=== PATIENT | female | born 1955 | race Caucasian/White ===

== ENCOUNTER 2017-02-10 09:51 | Day surgery (SDC) | payer BC, OTHER ==
[~2017-02-10] VITALS: Ht 165.1 cm; Wt 107.5 kg
[~2017-02-10 09:51] MED LIST: ACETAMINOPHEN 325 MG TAB PO PRN; CYCLOPENTOLATE 2% OPHTH SOLN 2ML BTL OD ONE; LIDOCAINE 3.5 % 1ML OPHTH TOPICAL GEL OU ONE; OFLOXACIN 0.3 % (OCUFLOX) OPTH SOL 5ML OD ONE; PHENYLEPHRINE 2.5% OPHTH SOL 2ML OD ONE; PROPARACAINE 0.5% OPHTH SOL 15ML OD PRN; TROPICAMIDE 1% OPHTH SOLN 2ML OD ONE; VITA-182 PO; ZYRT10CA PO
[2017-02-10] MEDS ORDERED: BSS with VANC/TOB/EPI for EYE CASES IR ONE (11:00)
[2017-02-10] MEDS ORDERED: LIDOCAINE 1% SDV 5 ML VIAL As Ordered ONE ×2 (11:13→11:46)
[2017-02-10] MEDS ORDERED: MOXIFLOXACIN IN BSS 0.25MG/0.25ML INTRACAMERAL INJ (OR EYE ONLY)(J2280) As Ordered ONE ×2 (11:13→11:47)
[2017-02-10] MEDS ORDERED: TRIAMCINOLONE PRES FR 40 MG/ML 1ML(TRIESENCE)(OR EYE ONLY)(J3300 PER 1MG) As Ordered ONE ×2 (11:13→11:46)
[2017-02-10] MEDS ORDERED: HEALON DUET (HEALON 10MG/ML 0.55ML & HEALON ENDOCOAT 30MG/ML 0.85ML) As Ordered ONE ×2 (11:13→11:47)
[2017-02-10] MEDS ORDERED: MIDAZOLAM INJ 2 MG/2 ML VIAL (J2250) As Ordered ONE (11:19)
[2017-02-10] MEDS ORDERED: fentaNYL 100 MCG/2 ML INJECTION (J3010) As Ordered ONE (11:19)
[2017-02-10] MEDS ORDERED: TRIMETHOBENZAMIDE 300 MG CAP PO PRN (12:30)
[2017-02-10] MEDS ORDERED: AcetaZOLAMIDE 500 MG ER CAP PO ONE (12:30)
[2017-02-10] MEDS ORDERED: KETOROLAC 0.5% OPHTH SOLN OD ONE (12:30)
[2017-02-10 12:40] VITALS: BP 149/70
== END 2017-02-10 10:59 | disposition home or self-care (01) ==
LOC: M SDC 09:51
PROVIDERS: ATTEND Ophthalmology
DX: H26.9 Unspecified cataract (principal); K21.9 Gastro-esophageal reflux disease without esophagitis; G43.909 Migraine, unspecified, not intractable, without status migrainosus; R06.83 Snoring; Z91.048 Other nonmedicinal substance allergy status; Z90.710 Acquired absence of both cervix and uterus
CPT/HCPCS: 66984; J2250; J2280; J3010; J3300

== ENCOUNTER → 2017-06-04 | Outpatient (CLI) | payer OTHER, BC ==
[2017-06-04 15:11] LABS: ANION GAP 9 MEQ/L (8-16); BLOOD UREA NITROGEN 18 MG/DL (7-18); CALCIUM LEVEL 8.6 MG/DL (8.5-10.1); CARBON DIOXIDE LEVEL 25 MEQ/L (21-32); CHLORIDE LEVEL 108 MEQ/L (98-107); CREATININE FOR GFR 0.85 MG/DL (0.55-1.30); GLOMERULAR FILTRATION RATE > 60.0 (>51); GLUCOSE, FASTING 81 MG/DL (70-100); MAGNESIUM LEVEL 2.1 MG/DL (1.8-2.4); POTASSIUM SERUM 4.3 MEQ/L (3.5-5.1); SODIUM LEVEL 142 MEQ/L (136-145)
== END ==
LOC: M WUC 13:16
DX: Z01.818 Encounter for other preprocedural examination (principal)

== ENCOUNTER 2017-06-10 08:49 | Day surgery (SDC) | payer BC, OTHER ==
[2017-06-10] MEDS: POVIDONE-IODINE 5% OPHTH PREP SOL 30ML As Ordered (06:55)
[~2017-06-10 08:49] MED LIST changes: +ACETAMINOPHEN 325 MG TAB PO; -ACETAMINOPHEN 325 MG TAB PO PRN; -CYCLOPENTOLATE 2% OPHTH SOLN 2ML BTL OD ONE; -LIDOCAINE 3.5 % 1ML OPHTH TOPICAL GEL OU ONE; +MIDAZOLAM INJ 2 MG/2 ML VIAL (J2250) As Ordered; -OFLOXACIN 0.3 % (OCUFLOX) OPTH SOL 5ML OD ONE; -PHENYLEPHRINE 2.5% OPHTH SOL 2ML OD ONE; +PHENYLEPHRINE HCL 10 % OPHTH. SOL 5ML OD; +PROPARACAINE 0.5% OPHTH SOL 15ML OD; -PROPARACAINE 0.5% OPHTH SOL 15ML OD PRN; -TROPICAMIDE 1% OPHTH SOLN 2ML OD ONE; -VITA-182 PO; -ZYRT10CA PO; +fentaNYL 100 MCG/2 ML INJECTION (J3010) As Ordered
[2017-06-10] MEDS: LIDOCAINE 3.5 % 1ML OPHTH TOPICAL GEL OU (09:05)
[2017-06-10] MEDS: CYCLOPENTOLATE 2% OPHTH SOLN 2ML BTL OD (09:05)
[2017-06-10] MEDS: PHENYLEPHRINE 2.5% OPHTH SOL 2ML OD (09:10)
[2017-06-10] MEDS: TROPICAMIDE 1% OPHTH SOLN 2ML OD (09:10)
[2017-06-10] MEDS: OFLOXACIN 0.3 % (OCUFLOX) OPTH SOL 5ML OD (09:15)
[2017-06-10] MEDS: CEFUROXIME 1MG/0.1ML INTRACAMERAL INJ As Ordered (10:22)
[2017-06-10] MEDS: LIDOCAINE 1% SDV 5 ML VIAL As Ordered (10:22)
[2017-06-10] MEDS: HEALON DUET (HEALON 10MG/ML 0.55ML & HEALON ENDOCOAT 30MG/ML 0.85ML) As Ordered ×2 (10:22→10:23)
[2017-06-10] MEDS: BSS with VANC/TOB/EPI for EYE CASES IR (10:23)
[2017-06-10] MEDS: AcetaZOLAMIDE 500 MG ER CAP PO (10:54)
[2017-06-10] MEDS: KETOROLAC 0.5% OPHTH SOLN OD (10:54)
[2017-06-10] MEDS ORDERED: TRIMETHOBENZAMIDE 300 MG CAP PO (11:00)
== END 2017-06-10 11:10 | disposition home or self-care (01) ==
LOC: M SDC 08:49
DX: H52.31 Anisometropia (principal); H52.32 Aniseikonia; H40.9 Unspecified glaucoma; E66.9 Obesity, unspecified; K21.9 Gastro-esophageal reflux disease without esophagitis; J30.9 Allergic rhinitis, unspecified; Z87.891 Personal history of nicotine dependence; Z88.1 Allergy status to other antibiotic agents; Z88.8 Allergy status to other drugs, medicaments and biological substances; Z91.048 Other nonmedicinal substance allergy status
CPT/HCPCS: 66986

== ENCOUNTER → 2018-04-22 | Outpatient (CLI) | payer BC, OTHER ==
[~2018-04-22] MED LIST changes: -ACETAMINOPHEN 325 MG TAB PO; +CLAR10CA3 PO; +IBUP1TAB6 PO; -MIDAZOLAM INJ 2 MG/2 ML VIAL (J2250) As Ordered; -PHENYLEPHRINE HCL 10 % OPHTH. SOL 5ML OD; -PROPARACAINE 0.5% OPHTH SOL 15ML OD; +REST0.05 OU; +VITA-182 PO; +ZYRT10CA PO; -fentaNYL 100 MCG/2 ML INJECTION (J3010) As Ordered
[2018-04-22 17:23] LABS: ALBUMIN 3.9 GM/DL (3.2-5.2); ALT/SGPT 25 U/L (12-78); BILIRUBIN,TOTAL 0.5 MG/DL (0.2-1.0); BLOOD UREA NITROGEN 17 MG/DL (7-18); CALCIUM LEVEL 8.7 MG/DL (8.8-10.2); CARBON DIOXIDE LEVEL 27 MEQ/L (21-32); CHLORIDE LEVEL 105 MEQ/L (98-107); CHOLESTEROL LEVEL 196 MG/DL (<200); CHOLESTEROL RISK RATIO 3.563 (<5); CREATININE FOR GFR 0.87 MG/DL (0.55-1.30); FREE T4 1.51 NG/DL (0.76-1.46); GLOMERULAR FILTRATION RATE > 60.0 (>45); GLUCOSE, FASTING 83 MG/DL (70-100); HDL CHOLESTEROL 55 MG/DL (>40); LDL CHOLESTEROL 106 MG/DL (<100); NON-HDL-C 141 MG/DL; POTASSIUM SERUM 4.5 MEQ/L (3.5-5.1); SODIUM LEVEL 139 MEQ/L (136-145); TOTAL 25(OH) VITAMIN D 31.4 NG/ML (30.0-100.0); TOTAL PROTEIN 7.4 GM/DL (6.4-8.2); TRIGLYCERIDES LEVEL 177 MG/DL (<150)
== END ==
LOC: M WUC 15:19
PROVIDERS: ATTEND Nurse Practitioner Family
DX: E55.9 Vitamin D deficiency, unspecified (principal); E78.5 Hyperlipidemia, unspecified

== ENCOUNTER → 2021-05-30 | Outpatient (CLI) | payer BC, OTHER | LOC: M RAD 13:04 | PROVIDERS: ATTEND Nurse Practitioner Adult Health | DX: N18.9 Chronic kidney disease, unspecified (principal) ==

== ENCOUNTER → 2023-02-18 | Outpatient (CLI) | payer MEDICARE, BC, OTHER | LOC: M RAD 07:40 | PROVIDERS: ATTEND Nurse Practitioner Adult Health | DX: R10.11 Right upper quadrant pain (principal); K80.20 Calculus of gallbladder without cholecystitis without obstruction; K83.8 Other specified diseases of biliary tract ==

== ENCOUNTER → 2023-08-01 | Outpatient (CLI) | payer MEDICARE, BC | LOC: M RAD 06:43 | PROVIDERS: ATTEND Nurse Practitioner Adult Health | DX: R10.11 Right upper quadrant pain (principal); K76.0 Fatty (change of) liver, not elsewhere classified; K80.20 Calculus of gallbladder without cholecystitis without obstruction ==

== ENCOUNTER → 2023-11-26 | Outpatient (REF) | payer MEDICARE, BC | LOC: M LAB REF 16:24 | PROVIDERS: ATTEND Nurse Practitioner Adult Health | DX: H46.9 Unspecified optic neuritis (principal) ==

== ENCOUNTER 2024-06-07 06:56 | Day surgery (SDC) | payer MEDICARE, BC ==
[~2024-06-07] VITALS: Ht 165.1 cm; Wt 108.3 kg
[~2024-06-07 06:56] MED LIST changes: +AMLO1TAB24 PO; +ATOR1TAB21 PO; +MAGN400C PO; +METO1TAB7 PO; +VITA100093 PO; +XALA0.007
[2024-06-07] MEDS ORDERED: propofoL 200 MG/20 ML VIAL As Ordered ONE (07:46)
[2024-06-07] MEDS ORDERED: LIDOCAINE 2% 100MG/5ML SDV (FOR ANES.) As Ordered ONE (07:47)
[2024-06-07 08:20] VITALS: TEMP 96.9
[2024-06-07 08:45] VITALS: BP 166/72; O2SAT 100
== END 2024-06-07 09:02 | disposition home or self-care (01) ==
LOC: M OPP 06:56
PROVIDERS: ATTEND Internal Medicine Gastroenterology
DX: Z12.11 Encounter for screening for malignant neoplasm of colon (principal); K63.5 Polyp of colon; K57.30 Diverticulosis of large intestine without perforation or abscess without bleeding; K64.0 First degree hemorrhoids; Z91.048 Other nonmedicinal substance allergy status; Z79.899 Other long term (current) drug therapy

== ENCOUNTER → 2024-07-01 | Outpatient (CLI) | payer MEDICARE, BC ==
[~2024-07-01] MED LIST changes: +STOO100C30 PO
== END ==
LOC: M EKG 15:54
PROVIDERS: ATTEND Anesthesiology
DX: Z01.818 Encounter for other preprocedural examination (principal); R03.0 Elevated blood-pressure reading, without diagnosis of hypertension; R00.1 Bradycardia, unspecified; R94.31 Abnormal electrocardiogram [ECG] [EKG]

== ENCOUNTER → 2024-07-06 | Day surgery (SDC) | payer MEDICARE, BC ==
[~2024-07-06] VITALS: Ht 172.7 cm; Wt 108.9 kg
[~2024-07-06] MED LIST changes: +ACETAMINOPHEN 1000MG/100ML IV BAG As Ordered ONE; +KETOROLAC 30 MG/ML 1ML VIAL As Ordered ONE; +LIDOCAINE 2% 100MG/5ML SDV (FOR ANES.) As Ordered ONE; +LR 1,000 ML IV SCH; +MIDAZOLAM INJ 2MG/2ML VIAL As Ordered ONE; +ONDANSETRON 4MG 2ML VIAL As Ordered ONE; +ROCURONIUM BROMIDE 50MG/5ML VIAL As Ordered ONE; +SUGAMMADEX SODIUM 500 MG/5 ML VIAL (BRIDION) As Ordered ONE; +ceFAZolin SOD 2 GM IV ONCE IV ONE; +fentaNYL 100 MCG/2 ML INJECTION As Ordered ONE
[2024-07-06 07:45] VITALS: BP 189/82; TEMP 97.2; O2SAT 98
== END | disposition home or self-care (01) ==
LOC: M SDC 07:38
PROVIDERS: ATTEND Surgery
DX: K80.20 Calculus of gallbladder without cholecystitis without obstruction (principal); Z53.09 Procedure and treatment not carried out because of other contraindication; R09.81 Nasal congestion
CPT/HCPCS: J0131; J1100; J1885; J2250; J2405; J3010

== ENCOUNTER 2024-08-03 06:07 | Day surgery (SDC) | payer MEDICARE, BC ==
[~2024-08-03] VITALS: Ht 165.1 cm; Wt 110.6 kg
[~2024-08-03 06:07] MED LIST changes: -ACETAMINOPHEN 1000MG/100ML IV BAG As Ordered ONE; +AMOX875T2 PO; -KETOROLAC 30 MG/ML 1ML VIAL As Ordered ONE; -LIDOCAINE 2% 100MG/5ML SDV (FOR ANES.) As Ordered ONE; -LR 1,000 ML IV SCH; -MIDAZOLAM INJ 2MG/2ML VIAL As Ordered ONE; -ONDANSETRON 4MG 2ML VIAL As Ordered ONE; -ROCURONIUM BROMIDE 50MG/5ML VIAL As Ordered ONE; -SUGAMMADEX SODIUM 500 MG/5 ML VIAL (BRIDION) As Ordered ONE; -ceFAZolin SOD 2 GM IV ONCE IV ONE; -fentaNYL 100 MCG/2 ML INJECTION As Ordered ONE
[2024-08-03] MEDS ORDERED: SUGAMMADEX SODIUM 500 MG/5 ML VIAL (BRIDION) As Ordered ONE (06:59)
[2024-08-03] MEDS ORDERED: ROCURONIUM BROMIDE 50MG/5ML VIAL As Ordered ONE (06:59)
[2024-08-03] MEDS ORDERED: ACETAMINOPHEN 1000MG/100ML IV BAG As Ordered ONE (06:59)
[2024-08-03] MEDS ORDERED: ONDANSETRON 4MG 2ML VIAL As Ordered ONE (06:59)
[2024-08-03] MEDS ORDERED: LIDOCAINE 2% 100MG/5ML SDV (FOR ANES.) As Ordered ONE (06:59)
[2024-08-03] MEDS ORDERED: KETOROLAC 30 MG/ML 1ML VIAL As Ordered ONE (06:59)
[2024-08-03] MEDS ORDERED: fentaNYL 100 MCG/2 ML INJECTION As Ordered ONE (07:00)
[2024-08-03] MEDS ORDERED: MIDAZOLAM INJ 2MG/2ML VIAL As Ordered ONE (07:00)
[2024-08-03] MEDS ORDERED: propofoL 200 MG/20 ML VIAL As Ordered ONE (07:08)
[2024-08-03 07:10] LABS: CALCIUM LEVEL 8.4 MG/DL (8.3-10.6); CREATININE FOR GFR 0.95 MG/DL (0.55-1.30); GLOMERULAR FILTRATION RATE 66.1 (>45); POTASSIUM SERUM 4.2 MMOL/L (3.5-5.1)
[2024-08-03] MEDS: ceFAZolin SOD 2 GM IV ONCE IV ONE (07:38)
[2024-08-03] MEDS ORDERED: PHENYLephrine 500MCG 5ML (100MCG/ML) SYRINGE As Ordered ONE (08:29)
[2024-08-03] MEDS ORDERED: ePHEDrine SULFATE 25 MG/5 ML(5MG/ML) SYRINGE As Ordered ONE (08:29)
[2024-08-03] MEDS ORDERED: dexmedeTOMIDine (4MCG/ML)200MCG/50ML BTL (PRECEDEX) As Ordered ONE (08:40)
[2024-08-03] MEDS ORDERED: ONDANSETRON 4MG 2ML VIAL IV PRN (09:15)
[2024-08-03] MEDS ORDERED: HYDROMORPHONE HCL 0.5 MG/ 0.5 ML SYRINGE IV PRN (09:15)
[2024-08-03] MEDS ORDERED: MEPERIDINE 25 MG/ML 1ML VIAL IV PRN (09:15)
[2024-08-03] MEDS ORDERED: fentaNYL 100 MCG/2 ML INJECTION IV PRN (09:15)
[2024-08-03] MEDS: oxyCODONE 5MG TAB PO PRN (09:49)
[2024-08-03 11:03] VITALS: BP 181/72; TEMP 96; O2SAT 97
[2024-08-03] MEDS ORDERED: traMADol 50 MG TAB PO PRN (11:10)
[2024-08-03] MEDS ORDERED: NS (Normal Saline) 0.9% 1,000 ML IV SCH (11:10)
== END 2024-08-03 11:12 | disposition home or self-care (01) ==
LOC: M SDC 06:07
PROVIDERS: ATTEND Surgery
DX: K80.10 Calculus of gallbladder with chronic cholecystitis without obstruction (principal); K76.0 Fatty (change of) liver, not elsewhere classified; Q44.1 Other congenital malformations of gallbladder; K74.60 Unspecified cirrhosis of liver; I10 Essential (primary) hypertension; Z79.899 Other long term (current) drug therapy; Z90.711 Acquired absence of uterus with remaining cervical stump; Z90.89 Acquired absence of other organs; Z91.018 Allergy to other foods; Z88.8 Allergy status to other drugs, medicaments and biological substances; Z91.048 Other nonmedicinal substance allergy status; Z87.19 Personal history of other diseases of the digestive system
CPT/HCPCS: 36415; 47562; 80048; 88304; J0131; J0665; J0690; J1100; J1885; J2250; J2371; J2405; J3010